=== PATIENT | female | born 1975 | race Hispanic/Latino ===

== ENCOUNTER 2017-08-05 17:14 | Emergency (ER) | payer OTHER ==
[2017-08-05 17:33] VITALS: BP 117/77
[2017-08-05] MEDS ORDERED: hyperRAB S/D IM ONE (19:48)
[2017-08-05] MEDS ORDERED: RABAVERT RABIES VACCINE(PCEC) IM ONE ×2 (19:48→20:15)
--- NOTE | 2017-08-05 19:54 | Emergency Department Report ---
ED Animal Bite HPI - General Chief Complaint: Medical Clearance Stated Complaint: RABBIES SHOT Time Seen by Provider: 08/05/17 19:22 Source: patient Mode of arrival: Ambulatory Limitations: No Limitations - History of Present Illness Initial Comments: Patient is a 42-year-old female who is presenting status post dog bite. Patient states she was bitten 3 days ago on the left hand by unknown persons dog. This is a neighbor's friend whom the dog is now missing. Patient states a relatively small dog and bit her on the hand that was a puncture she's RE on antibiotics given by her primary care physician but suggested since the dog has not been quarantined cannot be located by an control that she started rabies series. Patient states pain currently is a 3 out of 10 as this has some minor aches and pains associated with the bite. Patient states there is no redness or pus coming from the bite at this time. - Related Data Allergies Allergy/AdvReac Type Severity Reaction Status Date / Time ibuprofen Allergy Hives Verified 08/05/17 17:26 ED Review of Systems ROS: Stated complaint: RABBIES SHOT Other details as noted in HPI Comment: All other systems reviewed and negative ED Past Medical Hx - Past Medical History Previous Medical History?: No - Surgical History Additional Surgical History: TUBAL LIGATION - Social History Smoking Status: Never Smoker Substance Use Type: None ED Physical Exam - General Limitations: No Limitations General appearance: alert, in no apparent distress - Head Head exam: Present: atraumatic, normocephalic - Eye Eye exam: Present: normal appearance - ENT ENT exam: Present: mucous membranes moist - Neck Neck exam: Present: normal inspection - Respiratory Respiratory exam: Present: normal lung sounds bilaterally. Absent: respiratory distress - Cardiovascular Cardiovascular Exam: Present: regular rate, normal rhythm. Absent: systolic murmur, diastolic murmur, rubs, gallop - GI/Abdominal GI/Abdominal exam: Present: soft, normal bowel sounds. Absent: distended, tenderness, guarding, rebound, rigid - Extremities Exam Extremities exam: Present: normal inspection - Back Exam Back exam: Present: normal inspection - Neurological Exam Neurological exam: Present: alert, oriented X3 - Psychiatric Psychiatric exam: Present: normal affect, normal mood - Skin Skin exam: Present: warm, dry, intact, normal color, other (2 small puncture wounds on the left). Absent: rash ED Course Vital Signs 08/05/17 17:27 Temperature 98.1 F Pulse Rate 100 H Respiratory 18 Rate Blood Pressure 117/77 O2 Sat by Pulse 100 Oximetry - Reevaluation(s) Reevaluation #1: 08/05/17 21:06 Patient to receive the calculated dose of the immunoglobulin as well as first vaccine and the patient will need to have vaccine given in 3 days 7 days in 14 days. Critical care attestation.: If time is entered above; I have spent that time in minutes in the direct care of this critically ill patient, excluding procedure time. ED Disposition Clinical Impression: Dog bite Qualifiers: Encounter type: initial encounter Qualified Code(s): W54.0XXA - Bitten by dog, initial encounter Disposition: - TO HOME OR SELFCARE Is pt being admited?: No Does the pt Need Aspirin: No Condition: Stable Additional Instructions: Please return for the rest of your rabies vaccine series in 3 days, 7 days and again in 14 days from today Please bring this paper with few that you may bypass your wait. To Nursing staff: Please alert the mid-level or physician in Q track to patient' s arrival so that the vaccine can be ordered and the patient can be discharged quickly Referrals: GRISELDA LYNN [Primary Care Provider] - 3-5 Days
== END 2017-08-05 21:10 | disposition home or self-care (01) ==
LOC: ED 17:14
DX: S61.452A Open bite of left hand, initial encounter (principal); W54.0XXA Bitten by dog, initial encounter; Y93.89 Activity, other specified; Y92.89 Other specified places as the place of occurrence of the external cause; Y99.8 Other external cause status
CPT/HCPCS: 90375; 90471; 90472; 90675

== ENCOUNTER 2017-08-08 09:15 | Emergency (ER) | payer OTHER ==
--- NOTE | 2017-08-08 10:01 | Emergency Department Report ---
Chief Complaint: Animal Bite Stated Complaint: RABIES VACCINE Time Seen by Provider: 08/08/17 10:00 - HPI History of Present Illness: Patient is a 42-year-old female who presents to ED for second shot of rabies vaccination. Patient was seen here about 3 days ago for antibiotic was administered first dose. Patient states she was told to come back for the rest of the series. She states she is taking her medication as she was prescribed has no complaints. - ROS Review of Systems: She denies fevers/chills/nausea vomiting abdominal pain, chest pain, dizziness or any other symptoms - Exam Vital Signs: Vital Signs 08/08/17 09:21 Temperature 98.4 F Pulse Rate 76 Respiratory 16 Rate Blood Pressure 116/73 O2 Sat by Pulse 99 Oximetry Physical Exam: GENERAL: Alert and oriented x3, no apparent distress, Normal Gait, atraumatic. HEAD: Head is normocephalic and a-traumatic. SKIN: Warm and dry, No lesions, No ulceration or induration present. MSE screening note: Focused history and physical exam performed. Due to findings the following was ordered: ED Medical Decision Making - Medical Decision Making 42-year-old female here for rabies vaccination Patient received a vaccination with no problems. Discussed with patient to follow up with primary care physician upon completion of series ED Disposition for MSE Clinical Impression: Encounter for repeat administration of rabies vaccination Disposition: [id number] TO HOME OR SELFCARE Is pt being admited?: No Does the pt Need Aspirin: No Condition: Stable Additional Instructions: Make sure to follow up with the primary care physician as discussed. Continued to Take your medications as you've been prescribed. If you have any worsening symptoms or develop new symptoms please return to ED immediately. Referrals: [facility] [Outside] - 3-5 Days [facility] [Outside] - 3-5 Days Forms: Work/School Release Form(ED)
[2017-08-08 10:54] VITALS: BP 114/72
[2017-08-08] MEDS ORDERED: RABAVERT RABIES VACCINE(PCEC) IM ONE (11:00)
== END 2017-08-08 10:54 | disposition home or self-care (01) ==
LOC: ED 09:15
DX: Z23 Encounter for immunization (principal)
CPT/HCPCS: 90471; 90675